=== PATIENT | female | born 1960 | race American Indian/Alaskan Native ===

== ENCOUNTER 2017-01-22 18:31 | Emergency (ER) | payer BC ==
[2017-01-22 19:53] LABS: Basophils % (Auto) 0.8 % (0.0-1.8); Eosinophils % (Auto) 1.6 % (0.0-4.3); Hematocrit 34.4 % (30.3-42.9); Hemoglobin 11.4 gm/dl (10.1-14.3); Mean Corpuscular HGB Conc 33 % (30-34); Mean Corpuscular Hemoglobin 29 pg (28-32); Mean Corpuscular Volume 87 fl (79-97); Platelet Count 268 K/mm3 (140-440); Red Blood Count 3.94 M/mm3 (3.65-5.03); Red Cell Distribution Width 13.3 % (13.2-15.2); White Blood Count 7.6 K/mm3 (4.5-11.0)
[2017-01-22 20:08] LABS: Anion Gap 18 mmol/L; BUN/Creatinine Ratio 27.14; Blood Urea Nitrogen 19 mg/dL (7-17); Calcium 9.5 mg/dL (8.4-10.2); Carbon Dioxide 24 mmol/L (22-30); Chloride 103.3 mmol/L (98-107); Glucose 110 mg/dL (65-100); Potassium 3.9 mmol/L (3.6-5.0); Sodium 141 mmol/L (137-145)
--- NOTE | 2017-01-22 20:30 | Emergency Department Report ---
Chief Complaint: Chest Pain Stated Complaint: CHEST PAIN Time Seen by Provider: 01/22/17 20:27 - HPI History of Present Illness: Patient presents with right-sided chest pain she states it radiates up to her neck and down her right arm that has been going on for approximately one month. She does admit to nausea on and off. She states the pain is worse after eating or if she has not eaten in a wall. She also admits to having a lot of gas she describes the pain as pressure, she also admits to back pain, denies abdominal pain. She was sent here by her primary care physician Dr. Naomi Verduzco. - ROS Review of Systems: All other systems unremarkable except documentation in HPI - Exam Vital Signs: Vital Signs 01/22/17 18:40 Temperature 97.9 F Pulse Rate 67 Respiratory 20 Rate Blood Pressure 116/77 O2 Sat by Pulse 100 Oximetry Physical Exam: Gen: Female no apparent distress noted, ambulatory. Cardiovascular: Heart sounds present S1-S2, no murmur, gallop, edema or ectopy noted, 2+ pulses upper and lower extremities Respiratory: Chest symmetry with respirations, lungs clear to auscultate upper and lower lobes, respirations even and unlabored, no rales, rhonchi, crackles noted. MS: Tender to palpation superior and medial to right right clavicle Psych: AxOx3, answers questions appropriately, mood full range, affect normal, normal speech and tone. MSE screening note: Focused history and physical exam performed. Due to findings the following was ordered: seen by provider, laboratory and radiology studies ordered, and to go to main ED to be seen by physician ED Medical Decision Making - Lab Data Result diagrams: 01/22/17 19:29 01/22/17 19:29 - Medical Decision Making seen by provider, laboratory and radiology studies ordered, and to go to main ED to be seen by physician ED Disposition for MSE Condition: Stable
--- NOTE | 2017-01-23 07:02 | Emergency Department Report ---
ED Chest Pain HPI - General Chief Complaint: Chest Pain Stated Complaint: CHEST PAIN Time Seen by Provider: 01/22/17 20:27 Source: patient Mode of arrival: Ambulatory Limitations: No Limitations - History of Present Illness MD Complaint: chest pain -: Gradual, month(s) (2) Onset: during rest Pain Location: right chest Pain Radiation: none Severity: mild Severity scale (0 -10): 0 (no pain at this time) Consistency: intermittent Improves With: nothing Worsens With: eating re: nausea Other Symptoms: acid taste in mouth, burping. denies: cough, fever, syncope, rash, leg swelling, palpitations Aspirin use within the Past 7 Days: (0) No - Related Data Home Medications Medication Instructions Recorded Confirmed Last Taken Cyanocobalamin/Folic Acid [Vitamin 1 each PO DAILY 09/16/13 09/16/13 09/15/13 08 :00 L75-[place] Acid Tablet] Multivitamin with Minerals [One 1 each PO QDAY 09/16/13 09/16/13 09/15/13 08:00 Daily] [place]-3 Fatty Acids/Fish Oil [Fish 3 each PO QDAY 09/16/13 09/16/13 09/15/13 08: 00 Oil] Previous Rx's Medication Instructions Recorded Last Taken Type Azithromycin [Zithromax Z-MARY] 250 mg PO DAILY #6 tab 09/16/13 Unknown Rx Hydrocodone Bit/Acetaminophen 1 tab PO Q6H PRN #16 tablet 09/16/13 Unknown Rx [Lortab 10-500 mg] Promethazine Dm [Phenergan DM 5 ml PO Q6H PRN #100 ml 09/16/13 Unknown Rx 6.25-15 mg/5 ml] Azithromycin [Zithromax Z-MARY] 250 mg PO DAILY #6 tablet 02/16/14 Unknown Rx Fluticasone Propionate [Flonase] 16 gm NS BID #120 spray.susp 02/16/14 Unknown Rx HYDROcodone/APAP 10-325 [[place] 1 each PO Q6HR PRN #16 tablet 02/16/14 Unknown Rx 10-325 mg TAB] Esomeprazole Magnesium [NexIUM 20 mg PO 2XWHS #20 cap 01/23/17 Unknown Rx 24Hr] Allergies Allergy/AdvReac Type Severity Reaction Status Date / Time acetaminophen AdvReac Itching Verified 01/22/17 18:46 [From Darvocet-N 100] hydromorphone HCl AdvReac Itching Verified 01/22/17 18:46 [From Dilaudid] meperidine HCl [From Demerol] AdvReac Itching Verified 01/22/17 18:46 propoxyphene napsylate AdvReac Itching Verified 01/22/17 18:46 [From Darvocet-N 100] SHOSHANA score - Shoshana Score Age > 65: (0) No Aspirin use within the Past 7 Days: (0) No 3 or more CAD Risk Factors: (0) No 2 or more Angina events in past 24 hrs: (0) No Known CAD with more than 50% Stenosis: (0) No Elevated Cardiac Markers: (0) No ST Deviation Greater than 0.5mm: (0) No SHOSHANA Score: 0 ED Review of Systems ROS: Stated complaint: CHEST PAIN Other details as noted in HPI Constitutional: denies: chills, fever Eyes: denies: eye pain, eye discharge, vision change ENT: denies: ear pain, throat pain Respiratory: denies: cough, shortness of breath, wheezing Cardiovascular: denies: chest pain, palpitations Endocrine: no symptoms reported Gastrointestinal: denies: abdominal pain, nausea, diarrhea Genitourinary: denies: urgency, dysuria, discharge Musculoskeletal: denies: back pain, joint swelling, arthralgia Skin: denies: rash, lesions Neurological: denies: headache, weakness, paresthesias Psychiatric: denies: anxiety, depression Hematological/Lymphatic: denies: easy bleeding, easy bruising ED Past Medical Hx - Past Medical History Additional medical history: HERPES - Surgical History Hx Cholecystectomy: Yes Hx Appendectomy: Yes Additional Surgical History: hysterectomy. hernia repair. tonsillectomy - Social History Smoking Status: Former Smoker Substance Use Type: None - Medications Home Medications: Home Medications Medication Instructions Recorded Confirmed Last Taken Type Azithromycin [Zithromax Z-MARY] 250 mg PO DAILY #6 tab 09/16/13 Unknown Rx Cyanocobalamin/Folic Acid [Vitamin 1 each PO DAILY 09/16/13 09/16/13 09/15/13 08 :00 History D65-Tlndp Acid Tablet] Hydrocodone Bit/Acetaminophen 1 tab PO Q6H PRN #16 tablet 09/16/13 Unknown Rx [Lortab 10-500 mg] Multivitamin with Minerals [One 1 each PO QDAY 09/16/13 09/16/13 09/15/13 08:00 History Daily] [place]-3 Fatty Acids/Fish Oil [Fish 3 each PO QDAY 09/16/13 09/16/13 09/15/13 08: 00 History Oil] Promethazine Dm [Phenergan DM 5 ml PO Q6H PRN #100 ml 09/16/13 Unknown Rx 6.25-15 mg/5 ml] Azithromycin [Zithromax Z-MARY] 250 mg PO DAILY #6 tablet 02/16/14 Unknown Rx Fluticasone Propionate [Flonase] 16 gm NS BID #120 spray.susp 02/16/14 Unknown Rx HYDROcodone/APAP 10-325 [[place] 1 each PO Q6HR PRN #16 tablet 02/16/14 Unknown Rx 10-325 mg TAB] Esomeprazole Magnesium [NexIUM 20 mg PO 2XWHS #20 cap 01/23/17 Unknown Rx 24Hr] ED Physical Exam - General Limitations: No Limitations General appearance: alert, in no apparent distress - Head Head exam: Present: atraumatic, normocephalic - Eye Eye exam: Present: normal appearance - ENT ENT exam: Present: mucous membranes moist - Neck Neck exam: Present: normal inspection - Respiratory Respiratory exam: Present: normal lung sounds bilaterally. Absent: respiratory distress - Cardiovascular Cardiovascular Exam: Present: regular rate, normal rhythm. Absent: systolic murmur, diastolic murmur, rubs, gallop - GI/Abdominal GI/Abdominal exam: Present: soft, normal bowel sounds - Extremities Exam Extremities exam: Present: normal inspection - Neurological Exam Neurological exam: Present: alert, oriented X3 - Skin Skin exam: Present: warm, dry, intact, normal color. Absent: rash ED Course Vital Signs 01/22/17 01/22/17 01/23/17 18:40 18:52 04:06 Temperature 97.9 F 98 F 98 F Pulse Rate 67 51 L 64 Respiratory 20 18 18 Rate Blood Pressure 116/77 Blood Pressure 125/79 146/80 [Left] O2 Sat by Pulse 100 Oximetry 01/23/17 06:51 Temperature 97 F L Pulse Rate 100 H Respiratory 13 Rate Blood Pressure Blood Pressure 135/73 [Left] O2 Sat by Pulse 98 Oximetry ED Medical Decision Making - Lab Data Result diagrams: 01/22/17 19:29 03/08/17 19:29 - EKG Data -: EKG Interpreted by Me EKG shows normal: sinus rhythm Rate: normal - EKG Data When compared to previous EKG there are: no significant change Interpretation: no acute changes - Radiology Data cxr negative - Medical Decision Making patient is pain free / labs neg / ekg negative and cxr negative. no risk factos on SHOSHANA scale, will dc and follow up in 48h for further testing if needed. Critical care attestation.: If time is entered above; I have spent that time in minutes in the direct care of this critically ill patient, excluding procedure time. ED Disposition Clinical Impression: Chest pain Disposition: DISCHARGED TO HOME OR SELFCARE Is pt being admited?: No Does the pt Need Aspirin: No Condition: Good Instructions: Gastritis (ED) Prescriptions: Esomeprazole Magnesium [NexIUM 24Hr] 20 mg PO 2XWHS #20 cap Referrals: MEENA PIERRE MD [Primary Care Provider] - 3-5 Days Forms: Work/School Release Form(ED) Time of Disposition: 08:42
--- NOTE | 2017-01-23 07:29 | XRay Report ---
Chest 2 views: History: Chest pain. Findings: Normal cardiomediastinal silhouette. Trachea is midline. No consolidation, pneumothorax or pleural effusion. Impression: No acute cardiopulmonary findings.
[2017-01-23 09:23] VITALS: BP 122/72
== END 2017-01-23 09:08 | disposition home or self-care (01) ==
LOC: ED 18:31
DX: R07.9 Chest pain, unspecified (principal); Z90.49 Acquired absence of other specified parts of digestive tract; Z87.891 Personal history of nicotine dependence
CPT/HCPCS: 36415; 71020; 80048; 84484; 85025; 93005; 93010

== ENCOUNTER 2020-02-08 10:14 | Emergency (ER) | payer BC ==
[2020-02-08 10:21] VITALS: BP 134/92
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
== END 2020-02-08 12:33 | disposition home or self-care (01) ==
LOC: ED 10:14
DX: S16.1XXA Strain of muscle, fascia and tendon at neck level, initial encounter (principal); M70.88 Other soft tissue disorders related to use, overuse and pressure other site; Z88.6 Allergy status to analgesic agent; Z91.018 Allergy to other foods; Z88.8 Allergy status to other drugs, medicaments and biological substances; V89.2XXA Person injured in unspecified motor-vehicle accident, traffic, initial encounter; Y93.89 Activity, other specified; Y92.89 Other specified places as the place of occurrence of the external cause; Y99.8 Other external cause status
CPT/HCPCS: 99281